=== PATIENT | female | born 1970 | race African-American/Black ===

== ENCOUNTER 2019-07-19 09:21 | Emergency (ER) | payer MEDICAID ==
[~2019-07-19] VITALS: Ht 162.6 cm; Wt 56.0 kg
[2019-07-19] MEDS ORDERED: TRAMADOL 50MG TABLET PO ONE (10:15)
[2019-07-19 11:30] VITALS: BP 125/77
== END 2019-07-19 11:34 | disposition home or self-care (01) ==
LOC: ER 09:21
DX: S43.101A Unspecified dislocation of right acromioclavicular joint, initial encounter (principal); M75.31 Calcific tendinitis of right shoulder; X58.XXXA Exposure to other specified factors, initial encounter; Y93.89 Activity, other specified; Y92.89 Other specified places as the place of occurrence of the external cause; Y99.8 Other external cause status
CPT/HCPCS: 73030; 99283; A4565

== ENCOUNTER 2021-07-17 09:38 | Emergency (ER) | payer MEDICAID ==
[~2021-07-17] VITALS: Ht 160 cm; Wt 68.0 kg
[2021-07-17 09:43] VITALS: BP 133/80
[2021-07-17] MEDS ORDERED: HYDR-4001 MT (12:08)
[2021-07-17] MEDS ORDERED: DICL50TA9 MT (12:08)
== END 2021-07-17 13:59 | disposition home or self-care (01) ==
LOC: ER 09:38
DX: M16.11 Unilateral primary osteoarthritis, right hip (principal); M19.90 Unspecified osteoarthritis, unspecified site; M51.36 Other intervertebral disc degeneration, lumbar region; M48.00 Spinal stenosis, site unspecified; Z85.3 Personal history of malignant neoplasm of breast; Z98.890 Other specified postprocedural states
CPT/HCPCS: 72100; 73502; 99284